=== PATIENT | female | born 1980 | race Caucasian/White ===

== ENCOUNTER 2017-12-10 19:51 | Emergency (ER) | payer OTHER ==
[2017-12-10] MEDS ORDERED: IBUPROFEN 600 MG TAB PO ONE (20:03)
[2017-12-10] MEDS ORDERED: IOPAMIDOL (ISOVUE-300) 100 ML BTL ONE (20:20)
[2017-12-10] MEDS ORDERED: HYDROCODONE/APAP 5/325 TAB PO ONE (22:21)
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
[2017-12-10 23:00] VITALS: BP 122/87
== END 2017-12-10 23:00 | disposition home or self-care (01) ==
DX: S16.1XXA Strain of muscle, fascia and tendon at neck level, initial encounter (principal); S20.219A Contusion of unspecified front wall of thorax, initial encounter; S30.1XXA Contusion of abdominal wall, initial encounter; V43.52XA Car driver injured in collision with other type car in traffic accident, initial encounter; Y92.413 State road as the place of occurrence of the external cause
CPT/HCPCS: Q9967